=== PATIENT | male | born 1960 | race Caucasian/White ===

== ENCOUNTER 2021-06-15 21:48 | Emergency (ER) | payer MEDICAID ==
[~2021-06-15] VITALS: Ht 175.3 cm; Wt 95.3 kg
[2021-06-15 22:01] VITALS: BP_SYST 163
[2021-06-15 22:27] LABS: BILIRUBIN,URINE NEGATIVE (NEGATIVE); BLOOD, URINE 3+ (NEGATIVE); CLARITY/URINE CLOUDY (CLEAR); COLOR,URINE YELLOW (YELLOW); GLUCOSE,URINE 3+ (NEGATIVE); KETONES,URINE NEGATIVE (NEGATIVE); LEUKOCYTE ESTERASE ,URINE NEGATIVE (NEGATIVE); NITRITE, URINE NEGATIVE (NEGATIVE); PROTEIN URINE 3+ (NEGATIVE); UROBILINOGEN,URINE 0.2 (0.2-1.0)
[2021-06-15 23:05] LABS: BACTERIA,URINE FEW /HPF (None Seen); RBC,URINE >100 /HPF (0-3)
[2021-06-15] MEDS ORDERED: cefTRIAXone 1 GM in D5W 50 ML IV ONE (23:30)
[2021-06-15] MEDS ORDERED: NACL 0.9% 1,000 ML IV ONE (23:30)
[2021-06-15] MEDS ORDERED: cefTRIAXone 1 GM VIAL ONE (23:41)
[2021-06-15 23:53] LABS: EOSINOPHILS # (AUTO) 0.3 K/uL (0.0-0.4); RED BLOOD CELL COUNT(AUTO) 5.03 MIL/uL (4.2-6.2)
[2021-06-15 23:57] LABS: BASOPHILS # (AUTO) 0.1 K/uL (0.0-0.2); BASOPHILS % (AUTO) 0.7 % (0.0-2.0); EOSINOPHILS % (AUTO) 2.7 % (0.0-4.0); HEMOGLOBIN 16.3 g/dL (14.0-18.0); LYMPHOCYTES # (AUTO) 1.2 K/uL (1.0-5.5); LYMPHOCYTES % (AUTO) 12.2 % (20.5-51.5); MEAN CORPUSCULAR HEMOGLOBIN 33 pg (27-31); MEAN CORPUSCULAR HGB CONC 35 % (32-36); MEAN CORPUSCULAR VOLUME 93 fL (79.0-98.0); MONOCYTES % (AUTO) 10.1 % (1.7-9.3); NEUTROPHILS % (AUTO) 74.3 % (40.0-70.0); PLATELET COUNT (AUTO) 153 K/uL (130-430); RED CELL DISTRIBUTION WIDTH 13.2 % (9.0-15.0); WHITE BLOOD COUNT (AUTO) 9.4 K/uL (4.8-10.8)
[2021-06-16 00:18] LABS: CALCIUM 8.4 mg/dL (8.4-11.0); CREATININE 1.33 mg/dL (0.55-1.30); POTASSIUM 4.2 mmol/L (3.5-5.1)
[2021-06-16 00:24] LABS: ALBUMIN 3.4 g/dL (3.4-4.8); TOTAL BILIRUBIN 0.2 mg/dL (0.0-1.0)
[2021-06-16 00:42] VITALS: BP_SYST 174
[2021-06-16 00:55] LABS: ERYTHROCYTE SEDIMENTATION RATE 46 MM/HR (0-15)
[2021-06-16] MEDS ORDERED: NACL 0.9% 1,000 ML IV SCH (01:30)
== END 2021-06-16 03:01 | disposition left against medical advice (07) ==
LOC: SED 21:48
DX: N41.0 Acute prostatitis (principal); E11.65 Type 2 diabetes mellitus with hyperglycemia; F12.90 Cannabis use, unspecified, uncomplicated; F17.290 Nicotine dependence, other tobacco product, uncomplicated
CPT/HCPCS: 36415; 80053; 81000; 82962; 85025; 85651; 96361; 96365; 99284; J0696; J7030